=== PATIENT | male | born 1930 | race Caucasian/White ===

== ENCOUNTER 2017-02-05 11:47 | Emergency (ER) | payer OTHER, BC ==
[~2017-02-05] VITALS: Ht 182.9 cm; Wt 124.0 kg
[2017-02-05 12:44] LABS: HEMATOCRIT 39.3 % (38.0-50.0); MCH 28.9 PG (29.0-34.0); MCHC 32.1 G/DL (30.0-36.0); MCV 90.1 FL (86-99); MEAN PLAT.VOLUME 10.5 uM^3 (9.0-12.4); PLATELET COUNT 143 K/uL (156-360); RBC DIS.WIDTH-CV 14.7 % (11.8-14.6); RBC DIS.WIDTH-SD 48.8 % (39-53); RED BLOOD COUNT 4.36 M/uL (4.00-5.50); WHITE BLOOD COUNT 6.7 K/uL (4.1-10.2)
[2017-02-05 12:58] LABS: INTER. NORMALIZED RATIO 3.2; PROTHROMBIN TIME 33.5 (9.2-11.2)
[2017-02-05 13:02] LABS: CHLORIDE 112 mEq/L (99-109); POTASSIUM 4.2 mEq/L (3.7-5.4); SODIUM 142 mEq/L (136-147)
[2017-02-05 13:04] LABS: GLUCOSE 220 mg/dL (70-99)
[2017-02-05 13:05] LABS: ANION GAP 6 MEQ/L (2-14)
[2017-02-05 13:08] LABS: GFR ESTIMATE (CALCULATED) 41 mL/min/; UREA NITROGEN (BUN) 29 mg/dL (9-23)
[2017-02-05 14:23] LABS: COLOR BLOODY ((YELLOW)); SPECIFIC GRAVITY 1.015 (1.000-1.030)
[2017-02-05 14:24] LABS: ADD MIUA? YES; BILIRUBIN NEGATIVE; BLOOD LARGE; GLUCOSE (STRIP) NEGATIVE; KETONES NEGATIVE; LEUKOCYTES SMALL; NITRITE NEGATIVE; PH, URINE 6.5 (5-8); PROTEIN (STRIP) 300; UROBILINOGEN 0.2 MG/DL (0.2-1.0)
[2017-02-05 14:25] LABS: RED BLOOD CELLS TNTC /HPF (0-5); UCUL ADDED? YES
[2017-02-05 16:00] VITALS: BP 168/76
== END 2017-02-05 16:02 | disposition home or self-care (01) ==
LOC: EME 11:47
DX: R31.9 Hematuria, unspecified (principal); N40.0 Benign prostatic hyperplasia without lower urinary tract symptoms; I48.91 Unspecified atrial fibrillation; Z79.01 Long term (current) use of anticoagulants; I25.2 Old myocardial infarction; Z87.891 Personal history of nicotine dependence
CPT/HCPCS: 74176; 80048; 81003; 85027; 85610; 86900; 86901; 87086; 99281; 99284

== ENCOUNTER 2017-06-15 18:14 | Inpatient (IN) | payer OTHER, BC ==
[~2017-06-15] VITALS: Ht 182.9 cm; Wt 128.0 kg
[2017-06-15 19:23] LABS: HEMATOCRIT 43.5 % (38.0-50.0); MCH 27.8 PG (29.0-34.0); MCV 89.7 FL (86-99); MEAN PLAT.VOLUME 10.6 uM^3 (9.0-12.4); PLATELET COUNT 170 K/uL (156-360); RBC DIS.WIDTH-CV 14.6 % (11.8-14.6); RBC DIS.WIDTH-SD 48.1 % (39-53); RED BLOOD COUNT 4.85 M/uL (4.00-5.50); WHITE BLOOD COUNT 7.8 K/uL (4.1-10.2)
[2017-06-15 19:27] LABS: INTER. NORMALIZED RATIO 2.7; PROTHROMBIN TIME 31.3 SEC (10.2-12.9)
[2017-06-15 19:29] LABS: PTT 45.3 SEC (25-37)
[2017-06-15 19:34] LABS: ANION GAP 7 MEQ/L (2-14); CHLORIDE 109 MEQ/L (99-109); POTASSIUM 4.8 MEQ/L (3.7-5.4); SAMPLE HEMOLYSIS CHECK 0; SAMPLE ICTERIC CHECK 0; SAMPLE LIPEMIA CHECK 0; SODIUM 143 MEQ/L (136-147)
[2017-06-15 19:39] LABS: GFR ESTIMATE (CALCULATED) 38 mL/min/; GLUCOSE 116 mg/dL (70-99); UREA NITROGEN (BUN) 38 mg/dL (9-23)
[2017-06-15 20:17] LABS: LIPASE 37 U/L (1.0-51.0)
[2017-06-15] MEDS ORDERED: GLUCOTROL XL5 MG PO (23:49)
[2017-06-15] MEDS ORDERED: WARFARIN SODIUM1 MG PO (23:51)
[2017-06-15] MEDS ORDERED: ATORVASTATIN CA40 MG PO (23:51)
[2017-06-15] MEDS ORDERED: FLUTICASONE PRO16 GM BOTH NARES (23:52)
[2017-06-15] MEDS ORDERED: SPIRIVA RESPIMAT4 GM IH (23:53)
[2017-06-15] MEDS ORDERED: LOSARTAN POTAS100 MG PO (23:54)
[2017-06-15] MEDS ORDERED: GABAPENTIN100 MG PO (23:55)
[2017-06-15] MEDS ORDERED: FINASTERIDE5 MG PO (23:56)
[2017-06-15] MEDS ORDERED: MONTELUKAST SOD10 MG PO (23:58)
[2017-06-15] MEDS ORDERED: EPLERENONE50 MG PO (23:59)
[2017-06-16] VITALS (14 sets, daily range): BP systolic 140–179; BP diastolic 62–84
[2017-06-16] MEDS ORDERED: FUROSEMIDE40 MG PO
[2017-06-16] MEDS ORDERED: PARICALCITOL1 MCG PO (00:02)
[2017-06-16] MEDS ORDERED: LUMIGAN 0.50 DROP/22 BOTH EYES (00:04)
[2017-06-16] MEDS ORDERED: LO-DOSE ASPIRIN81 M2 PO (00:05)
[2017-06-16] MEDS ORDERED: CYANOCOBALAM1000 MCG PO (00:06)
[2017-06-16] MEDS ORDERED: ZYRTEC10 M3 PO (00:07)
[2017-06-16] MEDS ORDERED: MAGNESIUM CHLOR64 MG PO (00:08)
[2017-06-16] MEDS ORDERED: SALINE NASAL SP45 ML BOTH NARES (00:09)
[2017-06-16 03:00] LABS: HEMATOCRIT 37.4 % (38.0-50.0); MCV 89.5 FL (86-99)
[2017-06-16 05:56] LABS: POINT-OF-CARE METER ID UU14162513
[2017-06-16 11:09] LABS: HEMATOCRIT 39.8 % (38.0-50.0); MCV 89.6 FL (86-99)
[2017-06-16 17:51] LABS: HEMATOCRIT 37.5 % (38.0-50.0); MCV 87.6 FL (86-99)
[2017-06-16 17:55] LABS: INTER. NORMALIZED RATIO 1.9; PROTHROMBIN TIME 22.1 SEC (10.2-12.9)
[2017-06-17] VITALS (9 sets, daily range): BP systolic 110–145; BP diastolic 68–78
[2017-06-17 06:47] LABS: HEMATOCRIT 36.3 % (38.0-50.0); MCH 28.8 PG (29.0-34.0); MCHC 32.2 G/DL (30.0-36.0); MCV 89.4 FL (86-99); MEAN PLAT.VOLUME 10.8 uM^3 (9.0-12.4); PLATELET COUNT 120 K/uL (156-360); RBC DIS.WIDTH-CV 14.5 % (11.8-14.6); RBC DIS.WIDTH-SD 47.5 % (39-53); RED BLOOD COUNT 4.06 M/uL (4.00-5.50); WHITE BLOOD COUNT 5.4 K/uL (4.1-10.2)
[2017-06-17 07:02] LABS: PROTHROMBIN TIME 22.7 SEC (10.2-12.9)
[2017-06-17 07:05] LABS: PTT 33.8 SEC (25-37)
[2017-06-17 07:13] LABS: ANION GAP 8 MEQ/L (2-14); CHLORIDE 111 MEQ/L (99-109); GFR ESTIMATE (CALCULATED) 51 mL/min/; GLUCOSE 133 mg/dL (70-99); POTASSIUM 3.9 MEQ/L (3.7-5.4); SAMPLE HEMOLYSIS CHECK 0; SAMPLE ICTERIC CHECK 0; SAMPLE LIPEMIA CHECK 0; SODIUM 144 MEQ/L (136-147); UREA NITROGEN (BUN) 28 mg/dL (9-23)
[2017-06-17 14:43] LABS: POINT-OF-CARE METER ID UU14107333
[2017-06-17 21:38] LABS: POINT-OF-CARE METER ID UU13113700
[2017-06-18 03:55] VITALS: BP 152/82
[2017-06-18 05:31] LABS: HEMATOCRIT 34.4 % (38.0-50.0); MCH 29.5 PG (29.0-34.0); MCHC 33.1 G/DL (30.0-36.0); MCV 88.9 FL (86-99); MEAN PLAT.VOLUME 10.8 uM^3 (9.0-12.4); PLATELET COUNT 115 K/uL (156-360); RBC DIS.WIDTH-CV 14.4 % (11.8-14.6); RBC DIS.WIDTH-SD 46.6 % (39-53); RED BLOOD COUNT 3.87 M/uL (4.00-5.50); WHITE BLOOD COUNT 5.4 K/uL (4.1-10.2)
[2017-06-18 06:02] LABS: ANION GAP 9 MEQ/L (2-14); CHLORIDE 113 MEQ/L (99-109); GFR ESTIMATE (CALCULATED) 51 mL/min/; GLUCOSE 125 mg/dL (70-99); POTASSIUM 4.1 MEQ/L (3.7-5.4); SAMPLE HEMOLYSIS CHECK 1; SAMPLE ICTERIC CHECK 0; SAMPLE LIPEMIA CHECK 0; SODIUM 144 MEQ/L (136-147); UREA NITROGEN (BUN) 23 mg/dL (9-23)
[2017-06-18 09:01] VITALS: BP 145/72
[2017-06-18 12:19] LABS: POINT-OF-CARE METER ID UU13113700
[2017-06-18 12:32] VITALS: BP 159/69
[2017-06-18 12:34] LABS: INTER. NORMALIZED RATIO 1.6; PROTHROMBIN TIME 18.6 SEC (10.2-12.9)
[2017-06-18 20:16] VITALS: BP 136/84
[2017-06-18 22:43] LABS: POINT-OF-CARE METER ID UU13113700
[2017-06-18 23:47] VITALS: BP 161/94
[2017-06-19 05:02] VITALS: BP 132/82
[2017-06-19 05:18] LABS: EOSINOPHIL (%) 5.9 % (0-5); EOSINOPHIL COUNT 0.4 K/uL (0-0.3); HEMATOCRIT 35.9 % (38.0-50.0); IMMATURE GRANULOCYTE (%) 0.6 % (0.0-0.7); INSTRUMENT ABS NEUTROPHIL CT 4.4 K/uL; LYMPHOCYTE COUNT 0.9 K/uL (1.0-2.8); MCH 28.3 PG (29.0-34.0); MCHC 32.3 G/DL (30.0-36.0); MCV 87.6 FL (86-99); MEAN PLAT.VOLUME 10.1 uM^3 (9.0-12.4); MONOCYTE (%) 13.1 % (3-12); MONOCYTE COUNT 0.9 K/uL (0-0.8); NEUTROPHIL (%) 66.3 % (45-76); NEUTROPHIL COUNT 4.4 K/uL (1.8-6.4); PLATELET COUNT 121 K/uL (156-360); RBC DIS.WIDTH-CV 14.4 % (11.8-14.6); RBC DIS.WIDTH-SD 45.6 % (39-53); WHITE BLOOD COUNT 6.6 K/uL (4.1-10.2)
[2017-06-19 05:25] LABS: INTER. NORMALIZED RATIO 1.5; PROTHROMBIN TIME 16.9 SEC (10.2-12.9)
[2017-06-19 05:49] LABS: ANION GAP 7 MEQ/L (2-14); CHLORIDE 115 MEQ/L (99-109); GFR ESTIMATE (CALCULATED) 47 mL/min/; GLUCOSE 123 mg/dL (70-99); SAMPLE HEMOLYSIS CHECK 0; SAMPLE ICTERIC CHECK 0; SAMPLE LIPEMIA CHECK 0; SODIUM 144 MEQ/L (136-147); UREA NITROGEN (BUN) 27 mg/dL (9-23)
[2017-06-19] MEDS ORDERED: COUMADIN2 MG PO (07:52)
[2017-06-19 08:09] LABS: POINT-OF-CARE METER ID UU13113831
== END 2017-06-19 10:30 | disposition home or self-care (01) | DRG 379 ==
LOC: EME 18:14 → EDOF 06-16 00:16 → 5WEST 06-16 00:16 → EDOF 06-16 00:16 → ENRESERV 06-16 00:21 → 5WEST 06-16 00:51 → ENRESERV 06-16 10:38 → CANRESERV 06-16 10:38 → 5WEST 06-19 10:30
PROVIDERS: Hospitalist; Internal Medicine; Nurse Practitioner Family; Physician Assistant; Student in an Organized Health Care Education/Training Program
PROC: 30233K1 Transfusion of Nonautologous Frozen Plasma into Peripheral Vein, Percutaneous Approach (ICD-10-PCS; 2017-06-16)
PROC: 0DJD8ZZ Inspection of Lower Intestinal Tract, Via Natural or Artificial Opening Endoscopic (ICD-10-PCS; principal; 2017-06-17)
DX: K57.31 Diverticulosis of large intestine without perforation or abscess with bleeding (principal); K64.8 Other hemorrhoids; R79.1 Abnormal coagulation profile; T45.515A Adverse effect of anticoagulants, initial encounter; D17.5 Benign lipomatous neoplasm of intra-abdominal organs; J44.9 Chronic obstructive pulmonary disease, unspecified; N40.0 Benign prostatic hyperplasia without lower urinary tract symptoms; I12.9 Hypertensive chronic kidney disease with stage 1 through stage 4 chronic kidney disease, or unspecified chronic kidney disease; E11.22 Type 2 diabetes mellitus with diabetic chronic kidney disease; N18.3 Chronic kidney disease, stage 3 (moderate); E11.42 Type 2 diabetes mellitus with diabetic polyneuropathy; E78.5 Hyperlipidemia, unspecified; E21.3 Hyperparathyroidism, unspecified; G47.33 Obstructive sleep apnea (adult) (pediatric); I25.10 Atherosclerotic heart disease of native coronary artery without angina pectoris; E66.9 Obesity, unspecified; Z79.01 Long term (current) use of anticoagulants; Z79.82 Long term (current) use of aspirin; Z87.891 Personal history of nicotine dependence; I25.2 Old myocardial infarction; Z86.718 Personal history of other venous thrombosis and embolism; Z95.5 Presence of coronary angioplasty implant and graft; Z68.38 Body mass index [BMI] 38.0-38.9, adult; Z86.711 Personal history of pulmonary embolism
CPT/HCPCS: 74176; 80048; 82948; 83690; 85014; 85018; 85025; 85027; 85610; 85730; 86850; 86900; 86901; 93005; 94640; 94640 76; 99281; 99285; J7030; J7040; J7042; P9017